=== PATIENT | male | born 2005 | race Hispanic/Latino ===

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

== ENCOUNTER 2025-01-09 16:26 | Emergency (ER) | payer BC, OTHER ==
[~2025-01-09] VITALS: Ht 170.2 cm; Wt 68.8 kg
[2025-01-09] MEDS: LIDOCAINE 1% MDV 20 ML VIAL SC ONE (16:50)
[2025-01-09 17:29] VITALS: BP 139/63; TEMP 98.3; O2SAT 99
== END 2025-01-09 17:30 | disposition home or self-care (01) ==
LOC: M ED 16:26
DX: S61.212A Laceration without foreign body of right middle finger without damage to nail, initial encounter (principal); W26.0XXA Contact with knife, initial encounter; Y92.000 Kitchen of unspecified non-institutional (private) residence as the place of occurrence of the external cause; Y93.G1 Activity, food preparation and clean up; Y99.9 Unspecified external cause status; Z91.030 Bee allergy status